=== PATIENT | male | born 1940 | race Native Hawaiian/Other Pacific Islander ===

== ENCOUNTER 2017-04-06 06:25 | Outpatient (CLI) | payer OTHER, MEDICARE | END 2017-04-06 19:21 | disposition home or self-care (01) | LOC: LABW 06:25 | PROVIDERS: Nurse Practitioner Adult Health | DX: I25.10 Atherosclerotic heart disease of native coronary artery without angina pectoris (principal); E78.2 Mixed hyperlipidemia; Z79.899 Other long term (current) drug therapy; Z51.81 Encounter for therapeutic drug level monitoring | CPT/HCPCS: 36415; 80061; 80076 ==

== ENCOUNTER 2017-10-27 08:14 | Outpatient (CLI) | payer OTHER, MEDICARE | END 2017-10-27 09:15 | disposition home or self-care (01) | LOC: LABW 08:14 | PROVIDERS: Nurse Practitioner Adult Health | DX: E78.2 Mixed hyperlipidemia (principal); Z79.899 Other long term (current) drug therapy; Z51.81 Encounter for therapeutic drug level monitoring | CPT/HCPCS: 36415; 80061; 80076 ==

== ENCOUNTER 2018-05-27 07:13 | Outpatient (CLI) | payer OTHER, MEDICARE ==
[~2018-05-27] VITALS: Ht 177.8 cm; Wt 97.1 kg
== END 2018-05-27 23:09 | disposition home or self-care (01) ==
LOC: NM 07:13
PROVIDERS: Specialist
DX: I25.10 Atherosclerotic heart disease of native coronary artery without angina pectoris (principal); E78.2 Mixed hyperlipidemia; Z79.899 Other long term (current) drug therapy
CPT/HCPCS: 36415; 80061; 80076; 93306; A9500; J2785

== ENCOUNTER 2018-12-28 06:29 | Outpatient (CLI) | payer OTHER, MEDICARE | END 2018-12-28 23:03 | disposition home or self-care (01) | LOC: LABW 06:29 | PROVIDERS: Nurse Practitioner Adult Health | DX: E78.2 Mixed hyperlipidemia (principal); Z79.899 Other long term (current) drug therapy | CPT/HCPCS: 36415; 80061; 80076 ==

== ENCOUNTER 2019-08-23 08:13 | Outpatient (CLI) | payer OTHER, MEDICARE | END 2019-08-23 22:31 | disposition home or self-care (01) | LOC: LABW 08:13 | PROVIDERS: Nurse Practitioner Adult Health | DX: E78.2 Mixed hyperlipidemia (principal); Z79.899 Other long term (current) drug therapy | CPT/HCPCS: 36415; 80061; 80076 ==

== ENCOUNTER 2020-09-04 07:40 | Outpatient (CLI) | payer OTHER, MEDICARE | END 2020-09-04 19:14 | disposition home or self-care (01) | LOC: LABW 07:40 | PROVIDERS: Nurse Practitioner Adult Health | DX: E78.2 Mixed hyperlipidemia (principal); Z79.899 Other long term (current) drug therapy | CPT/HCPCS: 36415; 80061; 80076 ==

== ENCOUNTER 2020-12-30 09:14 | Outpatient (CLI) | payer OTHER, MEDICARE | END 2020-12-30 19:26 | disposition home or self-care (01) | LOC: INF 09:14 | PROVIDERS: ATTEND Internal Medicine | DX: Z23 Encounter for immunization (principal) ==

== ENCOUNTER 2021-01-27 09:11 | Outpatient (CLI) | payer OTHER, MEDICARE | END 2021-01-27 21:14 | disposition home or self-care (01) | LOC: INF 09:11 | PROVIDERS: ATTEND Internal Medicine | DX: Z23 Encounter for immunization (principal) | CPT/HCPCS: 96372 ==

== ENCOUNTER 2021-02-26 07:01 | Outpatient (CLI) | payer OTHER, MEDICARE | END 2021-02-26 20:22 | disposition home or self-care (01) | LOC: LAB 07:01 | PROVIDERS: ATTEND Nurse Practitioner Adult Health | DX: I25.10 Atherosclerotic heart disease of native coronary artery without angina pectoris (principal); E78.2 Mixed hyperlipidemia; Z79.899 Other long term (current) drug therapy | CPT/HCPCS: 36415; 80061; 80076 ==

== ENCOUNTER 2021-04-04 07:22 | Outpatient (CLI) | payer OTHER, MEDICARE | END 2021-04-04 21:55 | disposition home or self-care (01) | LOC: RESP 07:22 → NM 08:30 → RESP 08:30 | PROVIDERS: ATTEND Specialist | DX: I10 Essential (primary) hypertension (principal); I25.10 Atherosclerotic heart disease of native coronary artery without angina pectoris; Z86.79 Personal history of other diseases of the circulatory system ==

== ENCOUNTER 2022-06-28 07:21 | Outpatient (CLI) | payer OTHER, MEDICARE ==
[2022-06-28 07:29] LABS: PLATELET COUNT 148 K/uL (142-355)
[2022-06-28 07:50] LABS: POTASSIUM 4.1 mmol/L (3.6-5.2)
== END 2022-06-28 20:52 | disposition home or self-care (01) ==
LOC: LABW 07:21
PROVIDERS: ATTEND Internal Medicine Endocrinology, Diabetes & Metabolism
DX: I10 Essential (primary) hypertension (principal); E78.2 Mixed hyperlipidemia; R53.83 Other fatigue; I25.10 Atherosclerotic heart disease of native coronary artery without angina pectoris; Z13.1 Encounter for screening for diabetes mellitus; Z79.899 Other long term (current) drug therapy
CPT/HCPCS: 80053; 80061; 82306; 82607; 82746; 83036; 84439; 84443; 85027

== ENCOUNTER 2023-05-03 11:03 | Outpatient (CLI) | payer OTHER, MEDICARE | END 2023-05-03 19:22 | disposition home or self-care (01) | LOC: US 11:03 | PROVIDERS: ATTEND Specialist | DX: I77.89 Other specified disorders of arteries and arterioles (principal); E78.2 Mixed hyperlipidemia ==